=== PATIENT | female | born 1950 | race Caucasian/White ===

== ENCOUNTER → 2019-04-05 | Day surgery (SDC) | payer OTHER ==
[~2019-04-05] VITALS: Ht 167.6 cm; Wt 85.3 kg
[~2019-04-05] MED LIST: BENZTROPINE MESY2 M1 PO; BENZTROPINE2 MG PO; CHLORPROMAZINE50 MG PO; CLARITIN10 MG PO; CLOMIPRAMINE HC50 MG PO; COGENTIN2 MG PO; DIABETA5 MG PO; DIOVAN80 MG PO; GLYBURIDE5 MG PO; HALDOL2 MG PO; HALDOL5 M1 PO; IBUPROFEN400 MG PO; INDERAL20 MG PO; LATU40TA PO; LOVASTATIN40 MG PO; METFORMIN500 MG PO; PROPRANOLOL HCL20 M1 PO; REMERON15 MG PO; THORAZINE PO; TRAD5TAB1 PO
--- NOTE | ~2019-04-05 | PROC NOTE ---
[place], [place] PROCEDURE NOTE NAME: BERNARDINO RUIZ UNIT #: [id number] ROOM: DOCTOR: GLEN REDDING MD BIRTHDATE: [birth year] DOS: 04/05/2019 PREOPERATIVE DIAGNOSIS: Screening examination. POSTOPERATIVE DIAGNOSIS: Colon polyp at 85 cm. PROCEDURE: Colonoscopy with polypectomy. ENDOSCOPIST: Glen Redding M.D. FEE CLERK: [place]. ANESTHESIA: MAC. INDICATIONS: This is a 68-year-old lady who is here for a screening examination. The procedure and its complications were explained to the patient in detail preoperatively. Complications that were discussed included but were not limited to bleeding, colon perforation, missed lesions, and prolonged pain. She agreed to proceed. DESCRIPTION OF PROCEDURE: After identifying the patient, the patient was brought to the endoscopy suite and placed in the left lateral position. After IV sedation was administered, a timeout procedure was called and a digital rectal exam was performed. This was within normal limits. An adult colonoscope was now introduced into the anal canal and advanced sequentially into the rectum, sigmoid colon, descending colon, transverse colon and ascending colon up to the cecum. Upon reaching the cecum, the scope was withdrawn. Total withdrawal time was approximately 9 minutes. The prep was found to be suboptimal in certain areas and saline was used for irrigation for better visualization of the colonic mucosa. At approximately 85 cm from the anal verge, a single polyp was identified. This was removed in a piecemeal fashion with the help of a biopsy forceps and sent for histopathological diagnosis. After hemostasis was confirmed, the scope was further withdrawn. There were no other polyps that were visualized or any other lesions. The patient was then brought back to the recovery room in a stable fashion. There were no complications. Dr. Glen Redding, the attending endoscopist, was present throughout the operating case. Based on this finding, the patient is recommended to have another colonoscopy in the next 1-3 years or sooner if she had new symptoms. These findings were conveyed to the patient's family in the recovery room and will be discussed with the patient herself in the office in the next few weeks. [place], [place] PROCEDURE NOTE NAME: BERNARDINO RUIZ UNIT #: [id number] ROOM: DOCTOR: GLEN REDDING MDDATE: [birth year] Glen Redding MD CM:PROCNOTE:PROCEDURE NOTE [id number] GLEN REDDING MD
[2019-04-05 08:10] VITALS: BP 113/71
[2019-04-05 09:50] VITALS: BP 109/65
[2019-04-05 10:05] VITALS: BP 120/63
[2019-04-05 10:20] VITALS: BP 131/64
== END | disposition home or self-care (01) ==
LOC: SDC 03-30 11:00
DX: Z12.11 Encounter for screening for malignant neoplasm of colon (principal); D12.3 Benign neoplasm of transverse colon; I10 Essential (primary) hypertension; E11.9 Type 2 diabetes mellitus without complications; F41.9 Anxiety disorder, unspecified; F32.9 Major depressive disorder, single episode, unspecified; K21.9 Gastro-esophageal reflux disease without esophagitis; E66.9 Obesity, unspecified; Z68.34 Body mass index [BMI] 34.0-34.9, adult; Z79.84 Long term (current) use of oral hypoglycemic drugs; Z79.899 Other long term (current) drug therapy; Z88.8 Allergy status to other drugs, medicaments and biological substances; Z98.890 Other specified postprocedural states; Z90.710 Acquired absence of both cervix and uterus; Z90.49 Acquired absence of other specified parts of digestive tract

== ENCOUNTER → 2019-07-18 | Outpatient (CLI) | payer OTHER | END | disposition home or self-care (01) | LOC: LAB 11:52 | DX: Z01.83 Encounter for blood typing (principal); I10 Essential (primary) hypertension; D86.9 Sarcoidosis, unspecified; E13.9 Other specified diabetes mellitus without complications ==

== ENCOUNTER 2024-02-24 12:36 | Emergency (ER) | payer OTHER, MEDICARE, MEDICAID ==
[~2024-02-24] VITALS: Wt 89.8 kg
[2024-02-24 12:40] VITALS: BP 137/86
== END 2024-02-24 17:10 | disposition home or self-care (01) ==
LOC: ED 12:36
DX: S40.022A Contusion of left upper arm, initial encounter (principal); S60.222A Contusion of left hand, initial encounter; S30.811A Abrasion of abdominal wall, initial encounter; I10 Essential (primary) hypertension; E11.9 Type 2 diabetes mellitus without complications; F41.9 Anxiety disorder, unspecified; F32.A Depression, unspecified; E78.00 Pure hypercholesterolemia, unspecified; Z88.0 Allergy status to penicillin; Z88.1 Allergy status to other antibiotic agents; Z88.2 Allergy status to sulfonamides; Z90.49 Acquired absence of other specified parts of digestive tract; Z98.890 Other specified postprocedural states; V49.49XA Driver injured in collision with other motor vehicles in traffic accident, initial encounter; Y93.89 Activity, other specified; Y92.410 Unspecified street and highway as the place of occurrence of the external cause; Y99.8 Other external cause status